=== PATIENT | female | born 1955 | race African-American/Black ===

== ENCOUNTER 2020-10-25 12:02 | Emergency (ER) | payer MEDICAID, OTHER ==
[~2020-10-25] VITALS: Ht 162.6 cm; Wt 77.3 kg
[~2020-10-25 12:02] MED LIST: CLOP75TA PO; DIPH25CA58 PO; TRAZ-118 PO; VALS320T2 PO
--- NOTE | 2020-10-25 18:20 | RAD ---
CT HEAD/BRAIN WO History: Extremity numbness Comparison: 05/22/2015 Technique: Noncontrast CT imaging was performed of the head. Findings: No intracranial hemorrhage. No mass effect. No hydrocephalus. No evidence of acute territorial infar ction. 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 Imaged orbits are unremarkable. Imaged paranasal sinuses and mastoid air cells are clear. The scalp a nd calvarium are unremarkable. Impression: 1. No acute intracranial abnormality. 2. 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 ----- Exposure: One or more of the following individualized dose reduction techniques were utilized for thi s examination: 1. Automated exposure control 2. Adjustment of the mA and/or kV according to patient size 3. Use of iterative reconstruction technique. Electronically signed by: Bowen Valdes MD (10/25/2020 6:18 PM) [facility]
[2020-10-25 18:23] LABS: BASO % 1 % (0-3); EOS # 0.1 x10^3/uL (0.0-0.7); EOS % 1 % (0-3); HEMATOCRIT 41.2 % (36.0-47.0); HEMOGLOBIN 13.6 g/dL (12.0-15.5); LYMPH # 2.6 x10^3/uL (1.0-4.8); LYMPH % 28 % (24-48); MEAN CORPUSCULAR HEMOGLOBIN 27 pg (25-35); MEAN CORPUSCULAR HGB CONC 33 g/dL (31-37); MEAN CORPUSCULAR VOLUME 81 fL (79-100); MONO # 0.5 x10^3/uL (0.0-1.1); MONO % 6 % (0-9); NEUT # 5.9 x10^3/uL (1.8-7.7); NEUT % 65 % (31-73); PLATELET COUNT 227 x10^3/uL (140-400); RED CELL DISTRIBUTION WIDTH 16.4 % (11.5-14.5); WHITE BLOOD COUNT 9.1 x10^3/uL (4.0-11.0)
[2020-10-25 18:35] LABS: BILIRUBIN,URINE SMALL (NEG); CLARITY,URINE CLOUDY; COLOR,URINE YELLOW; NITRITE,URINE NEGATIVE (NEG); PH,URINE 7.5 (<5.0-8.0); PROTEIN,URINE 30 mg/dL (NEG-TRACE)
[2020-10-25 18:43] LABS: BACTERIA,URINE MANY /HPF (0-FEW); RBC,URINE OCC /HPF (0-2); TRICHOMONAS,URINE PRESENT; WBC,URINE 20-40 /HPF (0-4)
[2020-10-25 18:45] LABS: CREATININE 1.2 mg/dL (0.6-1.0); GFR 54.9; POTASSIUM 4.1 mmol/L (3.5-5.1)
[2020-10-25 18:50] LABS: ALBUMIN 3.9 g/dL (3.4-5.0); ALBUMIN/GLOBULIN RATIO 0.7 (1.0-1.7); MAGNESIUM 1.9 mg/dL (1.8-2.4); PHOSPHORUS 4.1 mg/dL (2.6-4.7); TOTAL BILIRUBIN 0.4 mg/dL (0.2-1.0); TOTAL PROTEIN 9.6 g/dL (6.4-8.2)
--- NOTE | 2020-10-25 18:55 | RAD ---
XR CHEST 1V History: Extremity numbness. Comparison: None. Technique: AP radiograph of the chest. Findings: The lungs are adequately and symmetrically inflated. No airspace consolidation, pleural effusion or p neumothorax. The cardiomediastinal silhouette and pulmonary vasculature are within normal limits. No acute osseous abnormality. Soft tissues are unremarkable. Impression: 1. No acute cardiopulmonary process. Electronically signed by: Bowen Valdes MD (10/25/2020 6:53 PM) [facility]
--- NOTE | 2020-10-25 19:02 | PHYS DOC ---
Past Medical History Past Medical History: CVA, High Cholesterol, Hypertension, Other Additional Past Medical Histor: Allergies. (LIZ GREGORY WASH OIL PUMP OPERATOR HELPER) Past Surgical History: No Surgical History (LIZ GREGORY WASH OIL PUMP OPERATOR HELPER) Smoking Status: Current Every Day Smoker Alcohol Use: None Drug Use: Marijuana (LIZ GREGORY WASH OIL PUMP OPERATOR HELPER) General Adult EDM: Chief Complaint: OTHER COMPLAINTS HPI: HPI: Patient is a 65 year old female presents to the emergency department with chief complaint of waking up with right sided numbness 2 days ago. Patient reports she thought she may have slept funny however over the past 2 days she only had minimal resolution of her numbness that starts from her face and travels down through her neck shoulder arm trunk waist hip thigh lower leg and foot of the right side. Patient describes it as numb and tingly sensation. Patient reports having 3 previous CVAs, 2 CVAs in 2000, and additional CVA and 2004 with residual left-sided upper and lower extremity deficits. Patient denies any headaches, recent fever or chills, chest pains, shortness of breath, nausea, vomiting or diarrhea. Patient denies any visual disturbances. Patient denies any dizziness or syncopal episodes. Patient reports she was just recently started on a diabetic medication pill for type 2 diabetes however does not remember the name. Patient reports seeing Dr. Mirna Escobedo for primary care. Patient reports receiving the COVID-19 vaccination series with 2nd dose 2 months ago,moderna brand. Patient denies any other physical concerns or physical complaints. (LIZ GREGORY WASH OIL PUMP OPERATOR HELPER) Review of Systems: Review of Systems: 14 body systems of review of systems have been reviewed. See HPI for pertinent positives and negative responses, otherwise all other systems are negative, nonp ertinent or noncontributory. Constitutional: Negative except as outlined in HPI above. Skin: Negative except as outlined in HPI above. Eyes: Negative except as outlined in HPI above. HENT: Negative except as outlined in HPI above. Respiratory: Negative except as outlined in HPI above. Cardiovascular: Negative except as outlined in HPI above. GI: Negative except as outlined in HPI above. : Negative except as outlined in HPI above. Musculoskeletal: Negative except as outlined in HPI above. Integument: Negative except as outlined in HPI above. Neurologic: Negative except as outlined in HPI above. Endocrine: Negative except as outlined in HPI above. Lymphatic: Negative except as outlined in HPI above. Psychiatric: Negative except as outlined in HPI above. (LIZ GREGORY APRN) Heart Score: C/O Chest Pain: No Risk Factors: Risk Factors: DM, Current or recent (<one month) smoker, HTN, HLP, family history of CAD, obesity. Risk Scores: Score 0 - 3: 2.5% MACE over next 6 weeks - Discharge Home Score 4 - 6: 20.3% MACE over next 6 weeks - Admit for Clinical Observation Score 7 - 10: 72.7% MACE over next 6 weeks - Early Invasive Strategies (LIZ GREGORY APRN) Allergies: Allergies: Allergies Coded Allergies Type Severity Reaction Last Updated Verified Penicillins Allergy Intermediate Hives. 05/22/15 Yes Uncoded Allergies Type Severity Reaction Last Updated Verified Antibiotic Eye Drop Allergy Unknown Caused nose to run. 05/22/15 (LIZ GREGORY APRN) Physical Exam: PE: Constitutional: Well developed, well nourished, no acute distress, non-toxic appearance. 65-year-old female in no apparent distress. HENT: Normocephalic, atraumatic. Normal voice tones, no drooling, no trismus. Eyes: Conjunctiva normal, no discharge. Satisfactory 6 cardinal eye movements. Neck: Normal range of motion, no stridor. No meningismus signs, no nuchal rigidity. Cardiovascular: No cyanosis appreciated, distal cap refill less than 2 seconds. Heart sounds S1-S2, PMI to the right. Lungs & Thorax: Patient is in no respiratory distress, no audible adventitious lung sounds appreciated. Lung sounds clear to auscultation all lung bagley. Abdomen: Nontender, no abnormalities noted. Skin: Warm, dry, no erythema, no rash. Back: No tenderness, no deformities. Extremities: No tenderness, no cyanosis, no clubbing, ROM intact, no edema. Decreased sensation to the left upper and lower extremity, +2/4 pulses, distal cap refill less than 2 sec. Neurologic: Alert and oriented X 3, normal motor function, normal sensory function, no focal deficits noted. ED NIHSS stroke scale equals 3. Please see stroke scale note. Psychologic: Affect normal, judgement normal, mood normal. (LIZ GREGORY APRN) Current Patient Data: Labs: Laboratory Tests Test 10/25/20 18:05 10/25/20 18:20 White Blood Count 9.1 x10^3/uL (4.0-11.0) Red Blood Count 5.10 x10^6/uL (3.50-5.40) Hemoglobin 13.6 g/dL (12.0-15.5) Hematocrit 41.2 % (36.0-47.0) Mean Corpuscular Volume 81 fL (79-100) Mean Corpuscular Hemoglobin 27 pg (25-35) Mean Corpuscular Hemoglobin Concent 33 g/dL (31-37) Red Cell Distribution Width 16.4 % (11.5-14.5) H Platelet Count 227 x10^3/uL (140-400) Neutrophils (%) (Auto) 65 % (31-73) Lymphocytes (%) (Auto) 28 % (24-48) Monocytes (%) (Auto) 6 % (0-9) Eosinophils (%) (Auto) 1 % (0-3) Basophils (%) (Auto) 1 % (0-3) Neutrophils # (Auto) 5.9 x10^3/uL (1.8-7.7) Lymphocytes # (Auto) 2.6 x10^3/uL (1.0-4.8) Monocytes # (Auto) 0.5 x10^3/uL (0.0-1.1) Eosinophils # (Auto) 0.1 x10^3/uL (0.0-0.7) Basophils # (Auto) 0.0 x10^3/uL (0.0-0.2) Sodium Level 136 mmol/L (136-145) Potassium Level 4.1 mmol/L (3.5-5.1) Chloride Level 97 mmol/L (98-107) L Carbon Dioxide Level 31 mmol/L (21-32) Anion Gap 8 (6-14) Blood Urea Nitrogen 13 mg/dL (7-20) Creatinine 1.2 mg/dL (0.6-1.0) H Estimated GFR (Cockcroft-Gault) 54.9 BUN/Creatinine Ratio 11 (6-20) Glucose Level 125 mg/dL (70-99) H Calcium Level 10.0 mg/dL (8.5-10.1) Phosphorus Level Pending Magnesium Level Pending Total Bilirubin Pending Aspartate Amino Transferase (AST) Pending Alanine Aminotransferase (ALT) Pending Alkaline Phosphatase Pending Total Protein Pending Albumin Pending Albumin/Globulin Ratio Pending Amylase Level Pending Urine Collection Type Unknown Urine Color Yellow Urine Clarity Cloudy Urine pH 7.5 (<5.0-8.0) Urine Specific [place] 1.025 (1.000-1.030) Urine Protein 30 mg/dL (NEG-TRACE) Urine Glucose (UA) Negative mg/dL (NEG) Urine Ketones (Stick) Trace mg/dL (NEG) Urine Blood Negative (NEG) Urine Nitrite Negative (NEG) Urine Bilirubin Small (NEG) Urine Urobilinogen Dipstick 2.0 mg/dL (0.2 mg/dL) Urine Leukocyte Esterase Moderate (NEG) Urine RBC Occ /HPF (0-2) Urine WBC 20-40 /HPF (0-4) Urine Squamous Epithelial Cells Many /LPF Urine Bacteria Many /HPF (0-FEW) Urine Mucus Mod /LPF Urine Trichomonas Present Laboratory Tests 10/25/20 18:05 Laboratory Tests 10/25/20 18:05 (LIZ GREGORY APRN) EKG: EKG: [] (LIZ GREGORY APRN) Radiology/Procedures: Radiology/Procedures: PATIENT: RESHMA GORDON AACCOUNT: [id number] : 1955 LOCATION: ER AGE: 65 SEX: F EXAM STATUS: REG ER ORD. PHYSICIAN: LIZ GREGORY APRN REASON: extremity numbness PROCEDURE: CHEST AP ONLY XR CHEST 1V History: Extremity numbness. Comparison: None. Technique: AP radiograph of the chest. Findings: The lungs are adequately and symmetrically inflated. No airspace consolidation, pleural effusion or pneumothorax. The cardiomediastinal silhouette and pulmonary vasculature are within normal limits. No acute osseous abnormality. Soft tissues are unremarkable. Impression: 1. No acute cardiopulmonary process. CT HEAD/BRAIN WO History: Extremity numbness Comparison: 05/22/2015 Technique: Noncontrast CT imaging was performed of the head. Findings: No intracranial hemorrhage. No mass effect. No hydrocephalus. No evidence of acute territorial infarction. 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 Imaged orbits are unremarkable. Imaged paranasal sinuses and mastoid air cells are clear. The scalp and calvarium are unremarkable. Impression: 1. No acute intracranial abnormality. 2. 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 ----- Exposure: One or more of the following individualized dose reduction techniques were utilized for this examination: 1. Automated exposure control 2. Adjustment of the mA and/or kV according to patient size 3. Use of iterative reconstruction technique. Electronically signed by: Bowen Javed MD (10/25/2020 6:18 PM) [facility] DICTATED and SIGNED BY: BOWEN JAVED MD DATE: 10/25/20 [id number] (LIZ GREGORY APRN) Course & Med Decision Making: Course & Med Decision Making Pertinent Labs and Imaging studies reviewed. (See chart for details) 55-year-old female, vital signs reviewed, presents to the emergency department concerning right sided numbness to her head neck arms and trunk hip leg and foot that started 2 days ago when she woke up. Physical examination concerning for CVA versus TIA versus other neurological deficit. A ED NIHSS stroke scale was performed at 1735 upon patient's arrival to the room. Stroke scale equals 3. Labs CT head without contrast chest x-ray and EKG along with urinalysis assay ordered, pending at this time. End of shift report given to Yogesh MARAVILLA, pending labs at this time. (LIZ GREGORY APRN) Course & Med Decision Making Assumed care at 1830. Patient is in the ED for right-sided numbness for 2 days. Chest x-ray was negative for any acute findings, CT of the head is negative. CBC, CMP, troponin with no acute findings, EKG is negative, blood pressure 180s over 90s. Patient states she has not taken any of her blood pressure medicines today, she has been in the ED for 8 hours most of it in the waiting room. Clonidine was offered. She has no headache, chest pain. I went to evaluate patient and inform her she will be admitted, patient states the numbness she had on the right side is completely gone, she refused to be ad mitted, she states she will see her own PCP tomorrow. She is willing to sign out AGAINST MEDICAL ADVICE. She is alert oriented x4. Unable to make her own decisions. She is given the risk of leaving AMA including and disability. Her urine was positive for UTI and trichomonas, given 2000 mg of Flagyl in the ED. Discharged on doxycycline to cover her for the rest of the typical STDs and Bactrim for UTI. Was given Flagyl full dose in the ED. Educated on STDs. (YOGESH ALBERT APRN) Course & Med Decision Making I have participated in the care of this patient and I have reviewed and agree with all pertinent clinical information above including history, exam, and recommendations. Patient was seen and offered admission for MRI and other neurological work-up. She did not want to be admitted and she has capacity to make her own decisions, she elected to sign out AGAINST MEDICAL ADVICE. Rabia Gonzalez DO (RABIA GONZALEZ DO) He Disclaimer: He Disclaimer: This electronic medical record was generated, in whole or in part, using a voice recognition dictation system. (LIZ GREGORY APRN) Departure Departure Impression: Primary Impression: Right sided numbness Additional Impressions: Accelerated hypertension UTI (urinary tract infection) Qualified Codes: N39.0 - Urinary tract infection, site not specified Trichomoniasis Disposition: LEFT AGAINST MEDICAL ADVICE Condition: STABLE Referrals: MIRNA ESCOBEDO MD (PCP) Scripts Doxycycline Hyclate (DOXYCYCLINE HYCLATE) 100 Mg Tablet 1 TAB PO BID, #14 TAB Prov: YOGESH ALBERT APRN 10/25/20 Sulfamethoxazole/Trimethoprim (BACTRIM DS TABLET) 1 Each Tablet 1 TAB PO BID for 7 Days, #14 TAB 0 Refills Prov: YOGESH ALBERT APRN 10/25/20 NIHSS Stroke Scale NIH Stroke Scale: NIH Stroke Scale Response (Comments) Value Level of Consciousness: 0 Alert/Responsive 0 LOC Questions: 0 Answers both correctly 0 LOC Commands: 0 Performs both tasks 0 Best Gaze: 0 Normal 0 Visual: 0 No visual loss 0 Facial Palsy: 1 Minor paralysis 1 Motor - Left Arm 0 No drift 0 Motor - Right Arm 0 No drift 0 Motor - Left Leg 0 No drift 0 Motor: Right Leg 1 Drift but can hold 1 Limb Ataxia: 0 Absent 0 Sensory: 1 Mid to moderate loss 1 Best Language: 0 Normal 0 Dysathria: 0 Normal 0 Extinction and Inattention: 0 Normal (Patient has had 3 CVA incident s in the past with left-sided upper and lower extremity deficits.) 0 Total 3 LIZ GREGORY WASH OIL PUMP OPERATOR HELPER Oct 25, 2020 19:02 YOGESH ALBERT WASH OIL PUMP OPERATOR HELPER Oct 25, 2020 21:37 RABIA GONZALEZ DO Oct 25, 2020 23:34
[2020-10-25] MEDS ORDERED: metroNIDAZOLE 500 MG TABLET PO ONE (20:45)
[2020-10-25] MEDS ORDERED: cloNIDine HCL 0.1 MG TABLET PO ONE (21:00)
[2020-10-25 21:02] VITALS: BP 170/83
[2020-10-25] MEDS ORDERED: DOXY100T PO (21:42)
[2020-10-25] MEDS ORDERED: SULF1TAB24 PO (21:42)
--- NOTE | 2020-10-26 05:43 | EKG ---
[facility] [address] [place] [address] Test Date: 2020-10-25 Test Time: 19:06:31 Pat Name: RESHMA GORDON Department: Room: Gender: F Digital Project Coordinator: : 1955 Requested By: LIZ GREGORY Order Number: [id number] Reading MD: Measurements Intervals [place] Rate: 84 P: 90 NV: 68 QRS: 46 QRSD: 188 T: 83 QT: 444 QTc: 529 Interpretive Statements SINUS RHYTHM NON SPECIFIC INTRAVENTRICULAR BLOCK QRS(T) CONTOUR ABNORMALITY CONSISTENT WITH INFERIOR INFARCT PROBABLY OLD ABNORMAL ECG RI6.02 Compared to ECG 10/25/2020 18:49:16 Myocardial infarct finding now present
== END 2020-10-25 21:05 | disposition left against medical advice (07) ==
LOC: ER 12:02
DX: N39.0 Urinary tract infection, site not specified (principal); A59.9 Trichomoniasis, unspecified; I10 Essential (primary) hypertension; R20.0 Anesthesia of skin; E78.00 Pure hypercholesterolemia, unspecified; F17.200 Nicotine dependence, unspecified, uncomplicated; Z86.73 Personal history of transient ischemic attack (TIA), and cerebral infarction without residual deficits; Z88.0 Allergy status to penicillin; Z88.1 Allergy status to other antibiotic agents
CPT/HCPCS: 36415; 70450; 71045; 80053; 81001; 82150; 83735; 84100; 84484; 85025; 87086; 93005; 99285-25